=== PATIENT | female | born 1995 | race Caucasian/White ===

== ENCOUNTER → 2016-09-09 | Outpatient (CLI) | payer OTHER ==
[~2016-09-09] MED LIST: METF500T13 PO; NALT1POW23 PO; VITA100067 PO
[2016-09-09 18:20] LABS: FOLLICLE STIMULATING HORMONE 8.9 mIU/mL; LUTEINIZING HORMONE 12.6 mIU/mL
[2016-09-09 18:24] LABS: ALBUMIN 4.1 GM/DL (3.2-5.2); ALBUMIN/GLOBULIN RATIO 1.03 (1.00-1.93); ALKALINE PHOSPHATASE 70 U/L (45-117); ALT/SGPT 19 U/L (12-78); ANION GAP 8 MEQ/L (8-16); AST/SGOT 11 U/L (15-37); BILIRUBIN,TOTAL 0.3 MG/DL (0.2-1.0); BLOOD UREA NITROGEN 11 MG/DL (7-18); CALCIUM LEVEL 9.5 MG/DL (8.5-10.1); CARBON DIOXIDE LEVEL 29 MEQ/L (21-32); CHLORIDE LEVEL 105 MEQ/L (98-107); CREATININE FOR GFR 0.64 MG/DL (0.55-1.02); FREE T4 1.15 NG/DL (0.76-1.46); GLOMERULAR FILTRATION RATE > 60.0 (>60); GLUCOSE, FASTING 84 MG/DL (70-105); POTASSIUM SERUM 4.2 MEQ/L (3.5-5.1); SODIUM LEVEL 142 MEQ/L (136-145); TOTAL PROTEIN 8.1 GM/DL (6.4-8.2)
[2016-09-09 18:51] LABS: BASO % 0.8 % (0.0-1.0); EOS # 0.1 K/mm3 (0.0-0.50); EOS % 2.3 % (0.0-3.0); LARGE UNSTAINED CELL # 0.2 K/mm3 (0.0-0.4); LARGE UNSTAINED CELL % 2.8 % (0.0-4.0); MEAN CORPUSCULAR HEMOGLOBIN 29.1 pg (27.0-33.0); MEAN CORPUSCULAR HGB CONC 32.8 g/dl (32.0-36.5); MEAN CORPUSCULAR VOLUME 88.4 fl (80.0-96.0); MONO # 0.4 K/mm3 (0.0-0.8); MONO % 6.6 % (0.0-5.0); NEUTROPHILS # 2.8 K/mm3 (1.8-7.7); NEUTROPHILS % 50.5 % (36.0-66.0); PLATELET COUNT, AUTOMATED 428 k/mm3 (150-450); RED CELL DISTRIBUTION WIDTH 12.9 % (11.5-14.5); WHITE BLOOD COUNT 5.5 K/mm3 (4.0-10.0)
== END ==
LOC: M SMT 10:34
PROVIDERS: ATTEND Physician Assistant Medical
DX: N97.9 Female infertility, unspecified (principal); Z13.0 Encounter for screening for diseases of the blood and blood-forming organs and certain disorders involving the immune mechanism; Z13.29 Encounter for screening for other suspected endocrine disorder

== ENCOUNTER → 2016-10-29 | Outpatient (CLI) | payer OTHER ==
--- NOTE | 2016-10-29 08:48 | REP ---
Right upper quadrant sonography: History: History of gallstones, according to the patient. Epigastric right upper quadrant pain. No comparison studies available. Findings: Scanning through the right upper quadrant of the abdomen demonstrates a normal sized thin-walled gallbladder containing a 1.6 cm shadowing gallstone. No gallbladder wall thickening or pericholecystic fluid is seen. The common bile duct is normal measuring 0.4 cm in greatest diameter. No focal liver lesion is seen. The pancreas is unremarkable. There is no evidence of ascites or right renal abnormality. The right kidney measures 9.5 x 4.2 x 5.0 cm. Normal caliber aorta. Impression: Cholelithiasis. Otherwise negative right upper quadrant sonography. Signed by Lincoln Navas MD 10/29/2016 08:39 A
== END ==
LOC: M RAD 06:49
PROVIDERS: ATTEND Physician Assistant Medical
DX: R10.9 Unspecified abdominal pain (principal)

== ENCOUNTER 2017-02-16 07:03 | Day surgery (SDC) | payer OTHER ==
[2017-02-16] MEDS: NS 1,000 ML IV (07:15)
[2017-02-16] MEDS ORDERED: LIDOCAINE 2% INJ 100 MG/5 ML SDV (FOR ANES.) As Ordered (08:00)
[2017-02-16] MEDS ORDERED: PROPOFOL 200 MG/20 ML VIAL As Ordered (08:00)
== END 2017-02-16 08:30 | disposition home or self-care (01) ==
LOC: M OPP 07:03
DX: B96.81 Helicobacter pylori [H. pylori] as the cause of diseases classified elsewhere (principal); K29.70 Gastritis, unspecified, without bleeding; E28.2 Polycystic ovarian syndrome; K21.9 Gastro-esophageal reflux disease without esophagitis; Z79.899 Other long term (current) drug therapy
CPT/HCPCS: 43239

== ENCOUNTER 2017-03-11 11:26 | Day surgery (SDC) | payer OTHER ==
[2017-03-11] MEDS ORDERED: LIDOCAINE 1% MDV 20ML VIAL SQ ×2 (12:00)
[2017-03-11] MEDS: LR 1,000 ML IV ×2 (12:01)
[2017-03-11 12:42] LABS: CONTROL LINE UCG INT CTR LINE PRESENT; URINE PREG TEST NEGATIVE (NEGATIVE)
[2017-03-11] MEDS ORDERED: MIDAZOLAM INJ 2 MG/2 ML VIAL (J2250) As Ordered ×2 (12:55)
[2017-03-11] MEDS ORDERED: fentaNYL 100 MCG/2 ML INJECTION (J3010) As Ordered ×4 (12:55→14:06)
[2017-03-11] MEDS ORDERED: ROCURONIUM BROMIDE 50 MG/5 ML VIAL As Ordered ×2 (13:35)
[2017-03-11] MEDS ORDERED: NEOSTIGMINE 10 MG/10 ML VIAL (J2710) As Ordered ×2 (13:35)
[2017-03-11] MEDS ORDERED: GLYCOPYRROLATE INJ 0.2 MG/ML 2 ML VIAL As Ordered ×2 (13:35)
[2017-03-11] MEDS ORDERED: LIDOCAINE 2% INJ 100 MG/5 ML SDV (FOR ANES.) As Ordered ×2 (13:35)
[2017-03-11] MEDS ORDERED: PROPOFOL 200 MG/20 ML VIAL As Ordered ×2 (13:35)
[2017-03-11] MEDS: LIDOCAINE W/EPINEPHRINE 1% 20ML VIAL As Ordered ×2 (13:50)
[2017-03-11] MEDS ORDERED: HYDROmorphone HCL 1 MG/ML SYRINGE (J1170) As Ordered ×4 (14:31→14:49)
[2017-03-11] MEDS ORDERED: ONDANSETRON 4MG/2ML VIAL (J2405) As Ordered ×2 (14:40)
[2017-03-11] MEDS ORDERED: METOCLOPRAMIDE INJ 10MG/2ML VIAL (J2765) As Ordered ×2 (14:41)
[2017-03-11] MEDS ORDERED: fentaNYL 100 MCG/2 ML INJECTION (J3010) IV ×2 (15:15)
[2017-03-11] MEDS ORDERED: ONDANSETRON 4MG/2ML VIAL (J2405) IV ×2 (15:15)
[2017-03-11] MEDS ORDERED: HYDROmorphone HCL 1 MG/ML SYRINGE (J1170) IV ×4 (15:15→15:50)
[2017-03-11] MEDS ORDERED: LR 1,000 ML IV ×2 (15:15)
[2017-03-11] MEDS ORDERED: METOCLOPRAMIDE INJ 10MG/2ML VIAL (J2765) IV ×2 (15:15)
[2017-03-11] MEDS ORDERED: NORCO, ANEXSIA 5/325MG TABLET (HYDROcodone/ACETAMINOPHEN) PO ×2 (15:30)
[2017-03-11] MEDS: PERCOCET 5MG/325MG TAB PO ×2 (15:54)
== END 2017-03-11 15:55 | disposition home or self-care (01) ==
LOC: M SDC 11:26
DX: K81.1 Chronic cholecystitis (principal); E28.2 Polycystic ovarian syndrome; B96.81 Helicobacter pylori [H. pylori] as the cause of diseases classified elsewhere; K29.70 Gastritis, unspecified, without bleeding; Z87.891 Personal history of nicotine dependence; Z79.899 Other long term (current) drug therapy; Z79.84 Long term (current) use of oral hypoglycemic drugs
CPT/HCPCS: 47562

== ENCOUNTER → 2017-08-29 | Outpatient (CLI) | payer OTHER ==
[2017-08-29 19:04] LABS: BASO # 0.1 10^3/uL (0.0-0.2); BASO % 1.2 % (0.0-1.0); EOS # 0.1 10^3/uL (0.0-0.50); EOS % 2.1 % (0.0-3.0); HEMATOCRIT 37.1 % (36.0-47.0); HEMOGLOBIN 12.5 g/dl (12.0-15.5); IMMATURE GRANULOCYTE % 0.4 % (0-3.0); LYMPH # 2.2 10^3/uL (1.5-6.5); LYMPH % 39.2 % (24.0-44.0); MEAN CORPUSCULAR HEMOGLOBIN 29.8 pg (27.0-33.0); MEAN CORPUSCULAR HGB CONC 33.7 g/dl (32.0-36.5); MEAN CORPUSCULAR VOLUME 88.3 fl (80.0-96.0); MONO # 0.4 10^3/uL (0.0-0.8); MONO % 6.2 % (0.0-5.0); NEUTROPHILS # 2.9 10^3/uL (1.8-7.7); NEUTROPHILS % 50.9 % (36.0-66.0); PLATELET COUNT, AUTOMATED 428 10^3/uL (150-450); RED CELL DISTRIBUTION WIDTH 13.2 % (11.5-14.5); WHITE BLOOD COUNT 5.7 10^3/uL (4.0-10.0)
[2017-08-29 19:13] LABS: ANION GAP 8 MEQ/L (8-16); BLOOD UREA NITROGEN 15 MG/DL (7-18); CALCIUM LEVEL 9.2 MG/DL (8.5-10.1); CARBON DIOXIDE LEVEL 28 MEQ/L (21-32); CHLORIDE LEVEL 106 MEQ/L (98-107); CREATININE FOR GFR 0.66 MG/DL (0.55-1.30); GLOMERULAR FILTRATION RATE > 60.0 (>60); GLUCOSE, FASTING 83 MG/DL (70-100); POTASSIUM SERUM 3.9 MEQ/L (3.5-5.1); SODIUM LEVEL 142 MEQ/L (136-145); THYROID STIMULATING HORMONE 0.557 uIU/ML (0.358-3.740)
== END ==
LOC: M SMT 13:56
DX: R06.00 Dyspnea, unspecified (principal)

== ENCOUNTER → 2017-10-27 | Outpatient (REF) | payer OTHER | LOC: M SFHCLERA 11:03 | DX: R30.0 Dysuria (principal) ==

== ENCOUNTER → 2017-12-15 | Outpatient (CLI) | payer OTHER ==
[2017-12-15 17:13] LABS: ESTIMATED AVERAGE GLUCOSE 105 MG/DL (60-110); HEMOGLOBIN A1c 5.3 %
== END ==
LOC: M SMT 10:40
DX: E28.2 Polycystic ovarian syndrome (principal)
CPT/HCPCS: 83036

== ENCOUNTER → 2018-01-24 | Outpatient (CLI) | payer OTHER ==
[2018-01-24 13:15] LABS: BASO # 0.1 10^3/uL (0.0-0.2); BASO % 0.5 % (0.0-1.0); EOS # 0.2 10^3/uL (0.0-0.50); EOS % 1.9 % (0.0-3.0); HEMATOCRIT 39.1 % (36.0-47.0); HEMOGLOBIN 12.8 g/dl (12.0-15.5); LYMPH # 2.1 10^3/uL (1.5-6.5); LYMPH % 21.7 % (24.0-44.0); MEAN CORPUSCULAR HEMOGLOBIN 29.7 pg (27.0-33.0); MEAN CORPUSCULAR HGB CONC 32.7 g/dl (32.0-36.5); MEAN CORPUSCULAR VOLUME 90.7 fl (80.0-96.0); MONO # 0.7 10^3/uL (0.0-0.8); MONO % 7.6 % (0.0-5.0); NEUTROPHILS # 6.6 10^3/uL (1.8-7.7); PLATELET COUNT, AUTOMATED 406 10^3/uL (150-450); RED BLOOD COUNT 4.31 10^6/uL (4.00-5.40); WHITE BLOOD COUNT 9.7 10^3/uL (4.0-10.0)
[2018-01-24 14:37] LABS: CHLAMYDIA DNA AMPLIFICATION NEGATIVE (NEGATIVE); GC DNA AMPLIFICATION NEGATIVE (NEGATIVE)
[2018-01-25 10:16] LABS: HEPATITIS C VIRUS ABY INDEX 0.1 INDEX (<0.8); HIV 1&2 SCREEN CENTAUR NEGATIVE (NEGATIVE); RUBELLA IgG QUALITATIVE IMMUNE (IMMUNE)
== END ==
LOC: M SMT 11:09
PROVIDERS: ATTEND Advanced Practice Midwife
DX: Z36.89 Encounter for other specified antenatal screening (principal)

== ENCOUNTER → 2018-04-18 | Outpatient (CLI) | payer OTHER ==
[~2018-04-18] MED LIST changes: +VITA200016 PO; +[UNRECOGNIZED DRUG - REMARK] PO
--- NOTE | 2018-04-19 04:51 | REP ---
Clinical: Anatomical evaluation. Comparison: None . Findings: Examination demonstrates a single live intrauterine in cephalic presentation. motion is identified by technologist. Placenta is noted anterior and grade grade zero without evidence for placenta previa or abruption. Amniotic fluid volume is normal. Cervix measures 4.4 cm in length and appears closed. No evidence for nuchal cord. Gestational age by LMP 21 weeks 3 days with [facility] 08/26/2018 . Gestational age by current measurements 20 weeks 5 day with [facility] 08/31/2018 . FHR equals 155 beats per minute. BPD 4.8 cm 20 weeks 3 days HC 18.2 cm 20 weeks 4 days AC 16.2 cm 21 weeks 4 days FL 3.3 cm 20 weeks 1 day HL 3.2 cm 20 weeks 6 days HC/AC ratio 1.13 Estimated weight 373 grams ( 25th percentile). Anatomical assessment demonstrates normal structures including cranium, choroid plexus, cavum, cerebellum/posterior fossa, facial features, lungs, four-chamber heart/ventricular outflow tracts, diaphragm, stomach, cord insertion/three-vessel cord, kidneys/bladder, spine, and extremities. Impression: Single live intrauterine in cephalic presentation demonstrating appropriate interval growth. Anatomical assessment is complete and normal. No gross abnormalities are identified. Electronically Signed by Moe Nino MD 04/19/2018 04:42 A
== END ==
LOC: M RAD 10:19
PROVIDERS: ATTEND Obstetrics & Gynecology
DX: Z34.82 Encounter for supervision of other normal pregnancy, second trimester (principal); Z3A.20 20 weeks gestation of pregnancy

== ENCOUNTER → 2018-05-30 | Outpatient (CLI) | payer OTHER ==
[2018-05-30 13:45] LABS: HEMATOCRIT 34.7 % (36.0-47.0); HEMOGLOBIN 11.4 g/dl (12.0-15.5); MEAN CORPUSCULAR HEMOGLOBIN 30.6 pg (27.0-33.0); MEAN CORPUSCULAR HGB CONC 32.9 g/dl (32.0-36.5); MEAN CORPUSCULAR VOLUME 93.3 fl (80.0-96.0); PLATELET COUNT, AUTOMATED 321 10^3/uL (150-450); RED BLOOD COUNT 3.72 10^6/uL (4.00-5.40); WHITE BLOOD COUNT 11.8 10^3/uL (4.0-10.0)
== END ==
LOC: M SMT 09:59
PROVIDERS: ATTEND Obstetrics & Gynecology
DX: Z34.82 Encounter for supervision of other normal pregnancy, second trimester (principal); Z3A.00 Weeks of gestation of pregnancy not specified

== ENCOUNTER → 2018-08-04 | Outpatient (REF) | payer OTHER ==
[~2018-08-04] MED LIST changes: +ACET-683 PO; +IBUP80TA PO; +OMEP10CASR PO; +PRENTAB77 PO; +SERT25TA85 PO
== END ==
LOC: M LAB REF 13:07
PROVIDERS: ATTEND Advanced Practice Midwife
DX: O99.343 Other mental disorders complicating pregnancy, third trimester (principal)

== ENCOUNTER 2018-08-11 20:09 | Inpatient (IN) | payer OTHER ==
[~2018-08-11] VITALS: Ht 154.9 cm; Wt 80.5 kg
[2018-08-11] VITALS (20 sets, daily range): BP systolic 121–165; BP diastolic 57–97
[~2018-08-11 20:09] MED LIST changes: -ACET-683 PO; -IBUP80TA PO; -OMEP10CASR PO; -PRENTAB77 PO; -SERT25TA85 PO
[2018-08-11] MEDS ORDERED: OMEP10CASR PO (20:27)
[2018-08-11] MEDS ORDERED: SERT25TA85 PO (20:30)
[2018-08-11] MEDS ORDERED: PRENTAB77 PO (20:30)
[2018-08-11] MEDS ORDERED: LR 1,000 ML IV SCH (20:49)
[2018-08-11] MEDS ORDERED: LACTATED RINGER'S 1000 ML IV STA (20:49)
--- NOTE | 2018-08-11 21:08 | HPEPDOC ---
Obstetrical History & Physical General Date of Admission Aug 11, 2018 at 20:55 History of Present Illness Chief Complaint: Contractions, term Information Provided By: Patient Age: 23 : 1 Term: 0 Pre-term: 0 Abortions: 0 Livin Care Care: Good Care Dating Final EDC: Aug 26, 2018 Final EDC by: LMP EGA at Admission: 37 (+6) Antepartum Course Height (inches): 60 Pre- weight (lbs.): 122 Admission Weight (lbs.): 174 Past Medical History Past Obstetrical History : Past Obstetrical History: [employer] History: Other (infertility) Past Medical History Medical History PCOS, anxiety Surgical History: Diagnostic laparoscopy, Gallbladder Family History Significant Family History: No pertinent family hx Social History Marital Status: Family situation: Spouse/partner home Psychosocial History: Anxiety * Smoker: former Smoker Alcohol: Denies Drugs: denies Abuse Violence Screening Have you been hit/kicked/slapp: No Have you been sexually assault: No Imunizations Tdap status: current Allergies Coded Allergies: No Known Allergies (Unverified , 03/11/17) Medications Scheduled Omeprazole (Omeprazole) 10 Mg Capsule.dr, 1 CAP PO DAILY Pnv,Calcium 72/Iron/Folic Acid ( Plus Tablet) 1 Each Tablet, 1 TAB PO DAILY Sertraline Hcl (Sertraline HCl) Unknown Strength Tablet, Unknown Dose PO DAILY Vitamin D (Vitamin D) 1,000 Unit Cap, 2,000 UNIT PO DAILY Physical Examination Physical Examination GENERAL: Alert and oriented times three. BREAST: . ABDOMEN: Gravid and non-tender to touch. FETUS: Is vertex (VTX) by sterile vaginal examination (SVE), fetus is vertex (VTX) by Jamari. HEART RATE: Regular rate and rhythm. LUNGS: Clear to auscultation (CTA). EXTREMITIES: No edema. No clonus. Deep tendon reflexes (DTRs) + 2. Pertinent Laboratoy Data Blood Type: O+ RBC Antibody Screen: Negative HIV: Negative Hepatitis B: Negative Hepatitis C: Negative Rapid Plasma Reagin: Nonreactive Rubella: Immune Chlamydia/Gonorrhea: Negative Group B Streptococcus: Negative Quad Screen Test: Declined Glucose Tolerance Test: 59 Anatomy Ultrasound Ultrasound Date: Apr 18, 2018 Placenta Location: Anterior Normal Anatomy: Yes Placenta Previa: No Estimated Weight (grams): 373 Other Ultrasounds 01/24/18 dating [facility] +FH 9w0d Steroid Therapy Steroid Therapy: No Vaginal Examination Dilation: 7 cm Effacement: 100% Station: -1 Cervical Consistency: Soft Cervical Position: Middle Presentation: Cephalic presentation Assessment Heart Rate (FHR): 150 Variability: Moderate Accelerations: Positive Decelerations: None Tocometer Contractions: Yes Frequency: regular, every 2-5 min. Duration: greater than 60 seconds Strength: palpated as moderate Assessment/Plan Assessment Giselle is a 23-year-old (G)1 para (P)0-0-0-0 at 37+6 weeks by 9-week ultrasound. Presents to Labor and Delivery (L&D) with complaints of contractions. Rates pain 10/10. Denies LOF or bleeding. Fetus is active. Plan Admit and orient. 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 Diet: Clear liquids. Group B Streptococcus (GBS) negative. Labs and intravenous (IV) per unit protocol. Preeclamptic panel ordered due to admission hypertension Counseled on Pitocin and induction of labor (IOL). Lactated Ringers (LR): Bolus 500 mL, then at 125 mL/hr. Plans epidural Anticipate normal spontaneous delivery (). C-S as appropriate. Tala Bright CNM Aug 11, 2018 21:08
[2018-08-11 21:13] LABS: HEMATOCRIT 38.8 % (36.0-47.0); HEMOGLOBIN 13.2 g/dl (12.0-15.5); MEAN CORPUSCULAR HEMOGLOBIN 29.5 pg (27.0-33.0); MEAN CORPUSCULAR VOLUME 86.8 fl (80.0-96.0); PLATELET COUNT, AUTOMATED 257 10^3/uL (150-450); RED BLOOD COUNT 4.47 10^6/uL (4.00-5.40); WHITE BLOOD COUNT 11.3 10^3/uL (4.0-10.0)
[2018-08-11] MEDS ORDERED: FENTANYL 2MCG/ML ROPIVACAINE 0.2% IN 0.9% NACL 100ML IVBAG As Ordered ONE (21:30)
[2018-08-11 21:47] LABS: CREATININE,RANDOM URINE 23.1 MG/DL; TOTAL PROTEIN,RANDOM URINE 5.5 MG/DL (0.0-12.0)
[2018-08-11] MEDS ORDERED: diphenhydrAMINE INJ 50MG/ML VIAL (J1200) IV PRN (23:00)
[2018-08-11] MEDS ORDERED: EPIDURAL/PCA KEYS XX PRN (23:00)
[2018-08-11] MEDS ORDERED: NALOXONE INJ 0.4 MG/1 ML VIAL (J2310) IV PRN (23:00)
[2018-08-11] MEDS ORDERED: EPIDURAL COMMENT XX SCH (23:00)
[2018-08-11] MEDS ORDERED: FENTANYL/ROPIVACAINE/NACL BAG 100 ML EPIDURAL SCH (23:00)
[2018-08-11] MEDS ORDERED: REFRIGERATOR IV KEYS XX PRN (23:00)
[2018-08-11] MEDS ORDERED: ePHEDrine SULFATE 25 MG/5 ML(5MG/ML) SYRINGE IV PRN (23:00)
[2018-08-11] MEDS ORDERED: LACTATED RINGER'S 1000 ML IV PRN (23:00)
[2018-08-11] MEDS ORDERED: ONDANSETRON 4MG/2ML VIAL (J2405) IV PRN (23:00)
[2018-08-12] VITALS (17 sets, daily range): BP systolic 128–168; BP diastolic 56–86
[2018-08-12 00:33] LABS: ALT/SGPT 21 U/L (12-78); BILIRUBIN,TOTAL 0.1 MG/DL (0.2-1.0); CREATININE FOR GFR 0.87 MG/DL (0.55-1.30); GLOMERULAR FILTRATION RATE > 60.0 (>60); LDH LACTATE DEHYDROGENASE 209 U/L (84-246); URIC ACID 5.9 MG/DL (2.6-6.0)
--- NOTE | 2018-08-12 00:33 | IPNPDOC ---
Text Note Date of Service The patient was seen on 08/12/18. NOTE Comfortable with epidural Cat I tracing, UC strong, 2-3 minutes apart SVE - BBOW at introitus, SROM with exam. FD/0-+1 station Labor down VS,Fishbone, I+O VS, Fishbone, I+O Laboratory Tests 08/11/18 20:50 Red Blood Count 4.47, Mean Corpuscular Volume 86.8, Mean Corpuscular Hemoglobin 29.5, Mean Corpuscular Hemoglobin Concent 34.0, Red Cell Distribution Width 13.4 Vital Signs Date Time Temp Pulse Resp B/P (MAP) Pulse Ox O2 Delivery O2 Flow Rate FiO2 08/11/18 23:38 84 140/65 (90) 08/11/18 23:23 18 08/11/18 20:25 98.0 Tala Bright CNM Aug 12, 2018 00:33
[2018-08-12] MEDS ORDERED: OXYTOCIN 30 UNITS IN 0.9% NaCl 500ML IV BAG (J2590) As Ordered ONE (01:18)
[2018-08-12] MEDS ORDERED: OXYTOCIN DRIP 30 UNITS in APPROPRIATE DILUENT 1 EA IV SCH (02:22)
[2018-08-12] MEDS ORDERED: IBUPROFEN 600 MG TAB PO PRN (02:30)
[2018-08-12] MEDS ORDERED: ACETAMINOPHEN 500 MG TAB PO PRN (02:30)
[2018-08-12] MEDS ORDERED: ACETAMINOPHEN TAB 650MG DOSE (2X325MG) PO PRN (02:30)
[2018-08-12] MEDS ORDERED: MEASLES,MUMPS,RUBELLA VACCINE INJ (MMR-II) (90707) SC SCH (02:30)
[2018-08-12] MEDS ORDERED: MOM 30ML SUSPENSION UDC PO PRN (02:30)
[2018-08-12] MEDS ORDERED: METHYLERGONOVINE MALEATE 0.2 MG TAB PO PRN (02:30)
[2018-08-12] MEDS ORDERED: DOCUSATE SODIUM 100 MG CAP PO PRN (02:30)
[2018-08-12] MEDS ORDERED: RHOGAM 300 MCG (1500 IU) INJ (J2790) IM SCH (02:30)
[2018-08-12] MEDS ORDERED: DIBUCAINE 1% OINTMENT 30GM TOP PRN (02:30)
[2018-08-12] MEDS ORDERED: ANUSOL HC CREAM 30GM TOP PRN (02:30)
--- NOTE | 2018-08-12 02:35 | DNPDOC ---
[facility] Delivery Note Delivery Note DATE OF DELIVERY: August 12, 2018 PREDELIVERY DIAGNOSIS: 38+0/7 weeks' gestation and labor. POST DELIVERY DIAGNOSIS: Delivered. PROCEDURE: Spontaneous vaginal delivery. PROVIDER: Tala Bright CNM ANESTHESIA: Epidural. ESTIMATED BLOOD LOSS: 400 mL. FINDINGS: 5 pound 8 ounce, 2500gm male , Score 8/9, no nuchal cord. DELIVERY SUMMARY: Patient is a 23-year-old 1 now para 1-0-0-1 who was admitted to labor and delivery for active labor. She utilized an epidural for labor coping. Fully dilated @ 0026, SROM clear fluid at that exam. Viable male delivered KIARA without difficulty @ 0140. Spontaneous respirations with stimulation, transitioned on maternal abdomen. Cord doubly clamped and cut by FOB under my direction once pulsations ceased. Apgars 8/9. Placenta moreno, intact with 3v cord @ 0146. Fundus firmed with massage and IV pitocin bolus. Perineum, cervix and vagina inspected. Bilateral sulcus lacerations repaired with 3-0 vicryl rapide. Persistent oozing from suture sites tied with isolated stitches of same suture. EBL 400ml. wt 2500gm, 5#8. Parents are naming their son Harsha. Sponge, sharp and instrument count correct. Tala Bright CNM Aug 12, 2018 02:35
[2018-08-12 07:19] LABS: HEMATOCRIT 34.8 % (36.0-47.0); HEMOGLOBIN 11.6 g/dl (12.0-15.5); MEAN CORPUSCULAR HEMOGLOBIN 29.1 pg (27.0-33.0); MEAN CORPUSCULAR HGB CONC 33.3 g/dl (32.0-36.5); MEAN CORPUSCULAR VOLUME 87.2 fl (80.0-96.0); PLATELET COUNT, AUTOMATED 217 10^3/uL (150-450); RED BLOOD COUNT 3.99 10^6/uL (4.00-5.40); WHITE BLOOD COUNT 22.1 10^3/uL (4.0-10.0)
[2018-08-12 07:45] LABS: ALT/SGPT 18 U/L (12-78); BILIRUBIN,TOTAL 0.3 MG/DL (0.2-1.0); CREATININE FOR GFR 0.84 MG/DL (0.55-1.30); GLOMERULAR FILTRATION RATE > 60.0 (>60); LDH LACTATE DEHYDROGENASE 247 U/L (84-246); URIC ACID 6.2 MG/DL (2.6-6.0)
[2018-08-12] MEDS: PRENATAL VITAMINS CHEWABLE TABLET PO SCH (08:27)
[2018-08-12] MEDS: SERTRALINE HCL 50 MG TAB PO SCH (08:27)
[2018-08-12] MEDS: VITAMIN D 1,000 INTERNATIONAL UNITS TABLET PO SCH (08:27)
[2018-08-12] MEDS: IBUPROFEN 800 MG TAB PO PRN (18:00)
[2018-08-13 06:36] VITALS: BP 160/84
[2018-08-13 06:50] VITALS: BP 139/66
[2018-08-13] MEDS: PRENATAL VITAMINS CHEWABLE TABLET PO SCH (08:23)
[2018-08-13] MEDS: SERTRALINE HCL 50 MG TAB PO SCH (08:23)
[2018-08-13] MEDS: VITAMIN D 1,000 INTERNATIONAL UNITS TABLET PO SCH (08:23)
[2018-08-13] MEDS: IBUPROFEN 800 MG TAB PO PRN (08:24)
[2018-08-13] MEDS ORDERED: IBUP80TA PO (14:34)
[2018-08-13] MEDS ORDERED: ACET-683 PO (14:34)
== END 2018-08-13 15:15 | disposition home or self-care (01) | DRG 807 ==
LOC: M LDO 20:09 → M LDI 20:55 → M OBS 08-12 03:49
PROVIDERS: ADMIT Advanced Practice Midwife; ATTEND Advanced Practice Midwife
PROC: 10E0XZZ Delivery of Products of Conception, External Approach (ICD-10-PCS; principal; 2018-08-12)
PROC: 0HQ9XZZ Repair Perineum Skin, External Approach (ICD-10-PCS; 2018-08-12)
DX: O70.0 First degree perineal laceration during delivery (principal); Z37.0 Single live birth; Z3A.38 38 weeks gestation of pregnancy

== ENCOUNTER → 2018-10-19 | Outpatient (REF) | payer OTHER ==
[~2018-10-19] MED LIST changes: +ACET-683 PO; +IBUP80TA PO; +OMEP10CASR PO; +PRENTAB77 PO; +SERT25TA85 PO
== END ==
LOC: M LAB REF 13:39
PROVIDERS: ATTEND Advanced Practice Midwife
DX: Z12.4 Encounter for screening for malignant neoplasm of cervix (principal)